=== PATIENT | female | born 1990 ===

== ENCOUNTER 2020-09-18 08:40 | Outpatient (CLI) | payer OTHER | END 2020-09-18 08:55 | disposition home or self-care (01) | LOC: NUCLEAR 08:40 | PROVIDERS: ATTEND Psychiatry & Neurology Neurology | DX: G54.0 Brachial plexus disorders (principal); I73.9 Peripheral vascular disease, unspecified ==

== ENCOUNTER 2020-09-19 09:02 | Outpatient (CLI) | payer OTHER | END 2020-09-19 09:05 | disposition home or self-care (01) | LOC: NUCLEAR 09:02 | PROVIDERS: ATTEND Psychiatry & Neurology Neurology | DX: I87.2 Venous insufficiency (chronic) (peripheral) (principal); G54.0 Brachial plexus disorders ==

== ENCOUNTER 2020-09-28 14:48 | Outpatient (CLI) | payer OTHER | END 2020-09-28 14:56 | disposition home or self-care (01) | LOC: RAD 14:48 | PROVIDERS: ATTEND Psychiatry & Neurology Neurology | DX: M54.2 Cervicalgia (principal) ==